=== PATIENT | male | born 1965 | race Caucasian/White ===

== ENCOUNTER 2021-07-20 10:22 | Emergency (ER) | payer MEDICAID, OTHER ==
[~2021-07-20] VITALS: Ht 180.3 cm; Wt 110.0 kg
[2021-07-20 10:23] VITALS: BP 142/89
== END 2021-07-20 15:45 | disposition left against medical advice (07) ==
LOC: ER 10:22
DX: R07.89 Other chest pain (principal); Z53.21 Procedure and treatment not carried out due to patient leaving prior to being seen by health care provider
CPT/HCPCS: 93005; 99283